=== PATIENT | female | born 1970 | race Two or more races ===

== ENCOUNTER 2022-05-14 00:21 | Emergency (ER) | payer OTHER ==
[2022-05-14] MEDS ORDERED: Ketorolac 30 MG/ML SDV IM ONE (02:01)
[2022-05-14] MEDS ORDERED: Ibuprofen 800 MG Tab PO ONE (02:02)
== END 2022-05-14 02:41 | disposition home or self-care (01) ==
LOC: MW.ED 00:21
DX: S80.11XA Contusion of right lower leg, initial encounter (principal); W20.8XXA Other cause of strike by thrown, projected or falling object, initial encounter
CPT/HCPCS: 73590; 96372; 99283; A9270

== ENCOUNTER 2023-04-06 09:39 | Day surgery (SDC) | payer SELFPAY ==
[~2023-04-06 09:39] MED LIST: Lactated Ringers 1,000 ML IV SCH; propofoL 0 ML ONE
[2023-04-06] MEDS ORDERED: Lidocaine 2% 5 ML SDV ONE (11:41)
[2023-04-06] MEDS ORDERED: Propofol 200 MG/20 ML SDV ONE ×2 (11:42→12:10)
[2023-04-06] MEDS ORDERED: Lactated Ringers 1,000 ML IV SCH (12:30)
== END 2023-04-06 13:03 | disposition home or self-care (01) ==
LOC: MW.SDS 09:39
PROVIDERS: ATTEND Surgery
DX: D12.4 Benign neoplasm of descending colon (principal); D12.5 Benign neoplasm of sigmoid colon; E11.9 Type 2 diabetes mellitus without complications; E66.9 Obesity, unspecified; Z87.891 Personal history of nicotine dependence; Z90.710 Acquired absence of both cervix and uterus; Z79.899 Other long term (current) drug therapy; Z68.33 Body mass index [BMI] 33.0-33.9, adult
CPT/HCPCS: 45380; J2704; J7120; 00811; J3490

== ENCOUNTER 2024-06-06 09:33 | Emergency (ER) | payer BC ==
[2024-06-06] MEDS: Ketorolac 30 MG/ML SDV IVPUSH ONE (10:19)
[2024-06-06] MEDS: Sodium Chloride 0.9% 1,000 ML IV ONE (10:19)
[2024-06-06] MEDS: Ondansetron 4 MG/2 ML SDV IVPUSH ONE (10:19)
[2024-06-06 10:23] LABS: APPEARANCE,URINE CLOUDY; BILIRUBIN,URINE NEGATIVE (NEGATIVE); COLOR,URINE YELLOW; GLUCOSE,URINE NEGATIVE (NEGATIVE); KETONES,URINE NEGATIVE (NEGATIVE); LEUKOCYTE ESTERASE,URINE LARGE (NEGATIVE); NITRITE,URINE POSITIVE (NEGATIVE); OCCULT BLOOD,URINE MODERATE (NEGATIVE); PROTEIN,URINE TRACE mg/dL (NEGATIVE); UROBILINOGEN,URINE 0.2 EU/dL (<2.0)
[2024-06-06 10:24] LABS: BASOPHILS ABSOLUTE AUTO 0.05 K/uL (0.00-0.20); BASOPHILS PERCENT AUTO 0.3 % (0.0-1.0); EOSINOPHILS ABSOLUTE AUTO 0.19 K/uL (0.00-0.45); EOSINOPHILS PERCENT AUTO 1.3 % (0.0-6.0); HEMATOCRIT 40.8 % (37.0-47.0); HEMOGLOBIN 13.6 g/dL (12.0-16.0); IMMATURE GRAN ABSOLUTE AUTO 0.05 K/uL (0.00-0.05); IMMATURE GRAN PERCENT AUTO 0.3 % (0.0-0.4); LYMPHOCYTES ABSOLUTE AUTO 3.01 K/uL (1.00-4.80); LYMPHOCYTES PERCENT AUTO 19.9 % (24.0-44.0); MEAN CORPUSCULAR HEMOGLOBIN 28.8 pg (28.0-32.0); MEAN CORPUSCULAR HGB CONC 33.3 g/dL (32.0-36.0); MEAN CORPUSCULAR VOLUME 86.3 fL (83.0-99.0); MEAN PLATELET VOLUME 9.9 fL (9.4-12.3); MONOCYTES ABSOLUTE AUTO 1.05 K/uL (0.00-0.80); MONOCYTES PERCENT AUTO 6.9 % (0.0-8.0); NEUTROPHILS ABSOLUTE AUTO 10.78 K/uL (1.80-7.70); NEUTROPHILS PERCENT AUTO 71.3 % (41.0-71.0); PLATELET COUNT,PLT 222 K/uL (150-400); RED BLOOD CELL COUNT 4.73 M/uL (4.10-5.30); WHITE BLOOD CELL COUNT,WBC 15.13 K/uL (3.9-11.3)
[2024-06-06 10:29] LABS: BACTERIA,URINE 3+ (NEGATIVE); EPITHELIAL CELLS,URINE FEW (NONE-FEW); WBC,URINE 70-80 (0-5/HPF)
[2024-06-06 11:04] LABS: A/G RATIO 0.9 (0.9-1.6); ALBUMIN 3.4 g/dL (3.4-5.0); BILIRUBIN TOTAL 0.6 mg/dL (0.2-1.0); CALCIUM 8.9 mg/dL (8.5-10.1); CARBON DIOXIDE,CO2 28.1 mmol/L (21.0-32.0); CREATININE 0.8 mg/dL (0.6-1.0); EST CRCL DRUG DOSING (CG) 57.07 mL/min; POTASSIUM,K 4.1 mmol/L (3.5-5.1); PROTEIN TOTAL,TP 7.4 g/dL (6.4-8.2)
[2024-06-06] MEDS: cefTRIAXone 1 GM in Sodium Chloride 0.9% 50 ML IV ONE (11:12)
[2024-06-06] MEDS: Phenazopyridine 200 MG Tab PO ONE (11:12)
== END 2024-06-06 12:44 | disposition home or self-care (01) ==
LOC: MERGE 09:33 → MW.ED 09:33
DX: N12 Tubulo-interstitial nephritis, not specified as acute or chronic (principal); E11.9 Type 2 diabetes mellitus without complications; Z79.899 Other long term (current) drug therapy; Z75.8 Other problems related to medical facilities and other health care
CPT/HCPCS: 36415; 74176; 80053; 81001; 85025; 87086; 87088; 87186; 96361; 96365; 96375; 99284; A9270; J0696; J1885; J2405; J3490; J7030; 99283